=== PATIENT | male | born 1975 | race Two or more races ===

== ENCOUNTER 2022-12-28 13:56 | Emergency (ER) | payer OTHER ==
[~2022-12-28] VITALS: Ht 180.3 cm; Wt 73.0 kg
== END 2022-12-28 18:37 | disposition home or self-care (01) ==
LOC: ER 13:56
DX: R56.9 Unspecified convulsions (principal)

== ENCOUNTER 2024-02-26 19:37 | Emergency (ER) | payer OTHER ==
[~2024-02-26] VITALS: Ht 175.3 cm; Wt 90.7 kg
[2024-02-26] MEDS ORDERED: CARBATROL300 MG PO (19:53)
[2024-02-26 19:54] VITALS: BP 135/85; O2SAT 98
[2024-02-26] MEDS ORDERED: EYE DROPS ADVAN15 ML OP (20:29)
== END 2024-02-26 20:42 | disposition home or self-care (01) ==
LOC: ER 19:39
DX: S05.12XA Contusion of eyeball and orbital tissues, left eye, initial encounter (principal); X58.XXXA Exposure to other specified factors, initial encounter; Y93.89 Activity, other specified; Y92.89 Other specified places as the place of occurrence of the external cause; Y99.9 Unspecified external cause status

== ENCOUNTER 2024-12-24 19:28 | Emergency (ER) | payer OTHER ==
[~2024-12-24] VITALS: Ht 175.3 cm; Wt 81.6 kg
[~2024-12-24 19:28] MED LIST: CARBATROL300 MG PO; EYE DROPS ADVAN15 ML OP
[2024-12-24] MEDS ORDERED: OXCARBAZEPINE300 MG PO (19:45)
[2024-12-24] MEDS ORDERED: KEPPRA750 MG PO (19:45)
[2024-12-24] MEDS ORDERED: KETOROLAC TROMETHAMINE 15 MG VIAL IM STA (20:12)
[2024-12-24] MEDS ORDERED: GENTAMICIN SULFATE 0.15 MG/DR DROPS 5ML OP ONE (20:30)
[2024-12-24] MEDS ORDERED: DICLOFENAC SODI75 MG PO (20:47)
== END 2024-12-24 20:51 | disposition home or self-care (01) ==
LOC: ER 19:51
DX: M77.52 Other enthesopathy of left foot and ankle (principal); H10.9 Unspecified conjunctivitis; M79.672 Pain in left foot